=== PATIENT | female | born 1995 | race Caucasian/White ===

== ENCOUNTER → 2018-11-24 | Outpatient (CLI) | payer OTHER ==
[2012-11-27 12:43] VITALS: BP 103/53
[~2018-11-24] MED LIST: CEPHALEXIN500 M1 PO; ED ZOFRAN4 TAB/BOTT PO; NO HOME MEDICATIONS; TESSALON PERLE200 MG PO
== END ==
LOC: RAD 07:53
DX: R10.9 Unspecified abdominal pain (principal); R11.2 Nausea with vomiting, unspecified; R19.7 Diarrhea, unspecified

== ENCOUNTER 2020-07-28 15:10 | Emergency (ER) | payer BC, MEDICAID ==
[2020-07-28] MEDS ORDERED: LABETALOL HYDR200 MG PO (15:15)
[2020-07-28 15:48] LABS: EOS # 0.4 (0.04-0.40); EOS % 3.2 % (1.0-5.0); HEMATOCRIT 24.3 % (37.0-47.0); LYMPH# 1.8 (1.50-4.00); MEAN CELL VOLUME 83 fl (78-100); MEAN CORPUSCULAR HEMOGLOBIN 25 pg (27-31); MEAN CORPUSCULAR HGB CONC 31 g/dL (33-37); MONO # 0.6 (0.20-0.80); PLATELET COUNT 365 K/mm3 (130-400); RED BLOOD COUNT 2.93 M/mm3 (4.10-5.30); RED CELL DISTRIBUTION WIDTH 14.9 % (11.5-14.5); WHITE BLOOD COUNT 11.9 K/mm3 (4.8-10.8)
[2020-07-28 15:58] LABS: HEMOGLOBIN 7.4 g/dL (12.5-16.0)
[2020-07-28 16:04] LABS: POTASSIUM 3.9 mmol/L (3.5-5.1)
[2020-07-28 16:06] LABS: CALCIUM 8.2 mg/dL (8.3-10.5)
[2020-07-28 16:12] LABS: MAGNESIUM 1.86 mg/dL (1.60-2.60)
[2020-07-28 17:08] VITALS: BP 141/98
== END 2020-07-28 17:05 | disposition home or self-care (01) ==
LOC: ED 15:10
PROVIDERS: Family Medicine
DX: O14.95 Unspecified pre-eclampsia, complicating the puerperium (principal); R60.9 Edema, unspecified; O90.81 Anemia of the puerperium; D64.9 Anemia, unspecified; Z88.6 Allergy status to analgesic agent; Z79.899 Other long term (current) drug therapy